=== PATIENT | male | born 1980 | race African-American/Black ===

== ENCOUNTER 2017-04-23 02:10 | Emergency (ER) | payer SELFPAY ==
[~2017-04-23] VITALS: Ht 170.2 cm; Wt 63.5 kg
[~2017-04-23 02:10] MED LIST: CARB100O PO; LITH300T PO
[2017-04-23 02:53] VITALS: BP 138/98
[2017-04-23] MEDS ORDERED: OLANZAPINE 5 MG TABLET ONE (03:22)
[2017-04-23] MEDS ORDERED: OLANZAPINE 5 MG TABLET PO ONE (03:30)
== END 2017-04-23 03:52 | disposition home or self-care (01) ==
LOC: ER 02:16
DX: F31.9 Bipolar disorder, unspecified (principal); F28 Other psychotic disorder not due to a substance or known physiological condition; Z79.899 Other long term (current) drug therapy
CPT/HCPCS: 99282; A4606; Z7610